=== PATIENT | female | born 1975 | race Two or more races ===

== ENCOUNTER 2018-03-03 05:31 | Day surgery (SDC) | payer OTHER ==
[2018-03-03] MEDS ORDERED: BUPIVACAINE 0.5%/EPI (SDV) 30 ML INJ (06:56)
[2018-03-03] MEDS ORDERED: DESFLURANE 15 MIN (07:00)
[2018-03-03] MEDS ORDERED: CEFAZOLIN 2 GM/50 ML (PMX) 50 ML IVPB (07:00)
[2018-03-03] MEDS ORDERED: IPRATROPIUM (NEB) 0.5 MG/2.5 ML AMP HHN (07:30)
[2018-03-03] MEDS ORDERED: EPHEDrine SULFATE 50 MG/5 ML SYG IV (07:30)
[2018-03-03] MEDS ORDERED: DIPHENHYDRAMINE 50 MG INJ IV (07:30)
[2018-03-03] MEDS ORDERED: MIDAZOLAM 1 MG/ML 2 ML INJ IV (07:30)
[2018-03-03] MEDS ORDERED: MEPERIDINE 25 MG INJ IV (07:30)
[2018-03-03] MEDS ORDERED: hydrALAzine 20 MG INJ IV (07:30)
[2018-03-03] MEDS ORDERED: TRIMETHOBENZAMIDE 100 MG/ML VIAL IM (07:30)
[2018-03-03] MEDS ORDERED: FENTAnyl 50 MCG/ML VIAL IV ×3 (07:30)
[2018-03-03] MEDS ORDERED: OXYCODONE/ACETAMINOPHEN (5/325) TAB PO (07:30)
[2018-03-03] MEDS ORDERED: LABETALOL HCL 20MG INJ IV (07:30)
[2018-03-03] MEDS ORDERED: HYDROmorphONE 1 MG/5 ML IV SYRINGE IV (07:30)
[2018-03-03] MEDS ORDERED: ALBUTEROL 0.083% (NEB) 2.5 MG/3 ML AMP HHN (07:30)
[2018-03-03] MEDS ORDERED: CEFAZOLIN 1 GM INJ (07:41)
[2018-03-03] MEDS ORDERED: PROPOFOL 20 ML (07:41)
[2018-03-03] MEDS ORDERED: GLYCOPYRROLATE 0.4 MG INJ (07:41)
[2018-03-03] MEDS ORDERED: NEOSTIGMINE 3 MG/3 ML SYRINGE (07:41)
[2018-03-03] MEDS ORDERED: MIDAZOLAM 1 MG/ML 2 ML INJ (07:41)
[2018-03-03] MEDS ORDERED: ROCURONIUM 50 MG INJ (07:41)
[2018-03-03] MEDS ORDERED: FENTAnyl 50 MCG/ML VIAL (07:41)
[2018-03-03] MEDS ORDERED: ONDANSETRON 4 MG INJ (07:42)
[2018-03-03] MEDS ORDERED: HYDROmorphONE 2 MG/ML SYG (07:42)
[2018-03-03] MEDS ORDERED: DEXAMETHASONE 4 MG/ML 5 ML INJ (07:44)
[2018-03-03] MEDS ORDERED: ROPIVACAINE 0.5 % 30 ML VIAL (08:01)
[2018-03-03] MEDS ORDERED: KETOROLAC 30 MG INJ (08:59)
[2018-03-03] MEDS: HYDROmorphONE 1 MG/5 ML IV SYRINGE IV ×3 (09:22→09:38)
[2018-03-03] MEDS: ONDANSETRON 4 MG INJ IV (09:23)
[2018-03-03] MEDS: OXYCODONE/ACETAMINOPHEN (5/325) TAB PO (09:47)
== END 2018-03-03 10:44 | disposition home or self-care (01) ==
LOC: SDS 05:31
DX: D25.9 Leiomyoma of uterus, unspecified (principal)
CPT/HCPCS: 49320; 93005

== ENCOUNTER 2018-08-04 05:10 | Inpatient (IN) | payer OTHER ==
[2018-08-04] MEDS ORDERED: SEVOFLURANE 15 MIN (07:00)
[2018-08-04] MEDS: LACTATED RINGER'S 1,000 ML IV ×5 (07:16→20:49)
[2018-08-04] MEDS ORDERED: CEFAZOLIN 1 GM INJ (07:31)
[2018-08-04] MEDS ORDERED: ONDANSETRON 4 MG INJ (07:31)
[2018-08-04] MEDS ORDERED: PROPOFOL 20 ML (07:31)
[2018-08-04] MEDS ORDERED: MEPERIDINE 100 MG INJ (07:31)
[2018-08-04] MEDS ORDERED: LIDOCAINE 2% (SDV) 5 ML INJ (07:31)
[2018-08-04] MEDS ORDERED: METOCLOPRAMIDE 10 MG INJ (07:32)
[2018-08-04] MEDS ORDERED: EPHEDrine 25 MG/5 ML SYG (08:11)
[2018-08-04] MEDS: POLYMYXIN/BACITRACIN 1L IRRIG IRR (09:05)
[2018-08-04] MEDS: BUPIVACAINE 0.25%/EPI (SDV) 30 ML INJ (09:05)
[2018-08-04] MEDS ORDERED: ZOLPIDEM 5 MG TAB PO (10:30)
[2018-08-04] MEDS ORDERED: HYDROCODONE/APAP (5/325) TAB PO ×2 (10:30)
[2018-08-04] MEDS ORDERED: ONDANSETRON INJ 6 MG in DEXTROSE 5% 50 ML IVPB (10:30)
[2018-08-04] MEDS ORDERED: DIPHENHYDRAMINE 50 MG CAP PO (10:30)
[2018-08-04] MEDS: KETOROLAC 30 MG INJ IV ×3 (10:44→22:16)
[2018-08-04] MEDS: HYDROmorphONE 1 MG/5 ML IV SYRINGE IV ×2 (10:56→11:03)
[2018-08-04] MEDS ORDERED: DIPHENHYDRAMINE 50 MG INJ IV (11:00)
[2018-08-04] MEDS ORDERED: MEPERIDINE 25 MG INJ IV (11:00)
[2018-08-04] MEDS ORDERED: OXYCODONE/ACETAMINOPHEN (5/325) TAB PO ×2 (11:00)
[2018-08-04] MEDS ORDERED: MIDAZOLAM 1 MG/ML 2 ML INJ IV (11:00)
[2018-08-04] MEDS ORDERED: ALBUMIN HUMAN 5% 250 ML IV (11:00)
[2018-08-04] MEDS ORDERED: ONDANSETRON 4 MG INJ IV ×2 (11:00)
[2018-08-04] MEDS ORDERED: EPHEDrine 25 MG/5 ML SYG IV (11:00)
[2018-08-04] MEDS ORDERED: HYDROmorphONE 1 MG/5 ML IV SYRINGE IV ×5 (11:00)
[2018-08-04] MEDS ORDERED: LABETALOL HCL 20MG INJ IV (11:00)
[2018-08-04] MEDS ORDERED: hydrALAzine 20 MG INJ IV (11:00)
[2018-08-04] MEDS ORDERED: METOCLOPRAMIDE 10 MG INJ IV (11:00)
[2018-08-04] MEDS ORDERED: FENTAnyl 50 MCG/ML VIAL IV ×6 (11:00)
[2018-08-04] MEDS: METOCLOPRAMIDE 10 MG TAB PO ×2 (12:16→17:22)
[2018-08-04] MEDS: CEFAZOLIN 1 GM/50 ML (PMX) 50 ML IVPB ×2 (13:31→22:15)
[2018-08-05] MEDS: METOCLOPRAMIDE 10 MG TAB PO ×3 (00:41→12:59)
[2018-08-05] MEDS: LACTATED RINGER'S 1,000 ML IV ×2 (02:12→05:16)
[2018-08-05 05:10] LABS: ADD MAN DIFF? NO
[2018-08-05] MEDS: CEFAZOLIN 1 GM/50 ML (PMX) 50 ML IVPB (05:16)
[2018-08-05] MEDS: KETOROLAC 30 MG INJ IV ×3 (05:16→16:39)
[2018-08-05 05:17] LABS: WHITE BLOOD COUNT 9.4 10^3/ul (4.8-10.8)
[2018-08-05 05:17] LABS: BASOPHILS % 0.4 % (0.0-2.0); EOSINOPHILS # 0.1 10^3/ul (0.0-0.5); EOSINOPHILS % 1.4 % (0.0-7.0); HEMATOCRIT 37.9 % (37.0-47.0); HEMOGLOBIN 12.5 g/dl (12.0-16.0); LYMPHOCYTES # 1.3 10^3/ul (0.8-2.9); MEAN CORPUSCULAR VOLUME 90.9 fl (82.0-101.0); MEAN PLATELET VOLUME 10.9 fl (7.4-10.4); MONOCYTE # 0.8 10^3/ul (0.3-0.9); MONOCYTES % 8.1 % (0.0-11.0); NEUTROPHIL # 7.1 10^3/ul (1.6-7.5); NEUTROPHILS % 75.6 % (39.0-77.0); PLATELET COUNT 253 10^3/UL (140-415); RED BLOOD COUNT 4.17 10^6/ul (4.20-5.40); RED CELL DISTRIBUTION WIDTH 12.8 % (11.5-14.5)
[2018-08-05 05:33] LABS: ANION GAP 10 (5-13); BLOOD UREA NITROGEN 7 mg/dl (7-20); CARBON DIOXIDE 31 mmol/L (21-31); CHLORIDE 103 mmol/L (97-110); CREATININE 0.82 mg/dl (0.44-1.00); POTASSIUM 4.7 mmol/L (3.5-5.1); SODIUM 144 mmol/L (135-144)
[2018-08-05 11:20] LABS: ADD UMIC YES; UR ASCORBIC ACID NEGATIVE (NEGATIVE); UR BILIRUBIN (Dip) NEGATIVE (NEGATIVE); UR BLOOD (Dip) 1+ mg/dL (NEGATIVE); UR CLARITY CLEAR (CLEAR); UR COLOR STRAW (YELLOW); UR GLUCOSE (Dip) NEGATIVE (NEGATIVE); UR KETONES (Dip) NEGATIVE (NEGATIVE); UR LEUKOCYTE ESTERASE (Dip) NEGATIVE Leu/ul (NEGATIVE); UR NITRITE (Dip) NEGATIVE (NEGATIVE); UR RBC 7 /HPF (0-5); UR SPECIFIC GRAVITY (Dip) 1.008 (1.003-1.030); UR TOTAL PROTEIN (Dip) NEGATIVE (NEGATIVE); UR UROBILINOGEN (Dip) NEGATIVE (NEGATIVE); UR WBC 3 /HPF (0-5)
== END 2018-08-05 17:35 | disposition home or self-care (01) | DRG 743 ==
LOC: REC 05:10 → MS1 11:27
PROC: 0UDB8ZZ Extraction of Endometrium, Via Natural or Artificial Opening Endoscopic (ICD-10-PCS; principal; 2018-08-04 07:30)
PROC: 0U598ZZ Destruction of Uterus, Via Natural or Artificial Opening Endoscopic (ICD-10-PCS; 2018-08-04 07:30)
PROC: 0JUC3JZ Supplement of Pelvic Region Subcutaneous Tissue and Fascia with Synthetic Substitute, Percutaneous Approach (ICD-10-PCS; 2018-08-04 07:30)
PROC: 0JUC3KZ Supplement of Pelvic Region Subcutaneous Tissue and Fascia with Nonautologous Tissue Substitute, Percutaneous Approach (ICD-10-PCS; 2018-08-04 07:30)
PROC: 0UU Female Reproductive System, Supplement (ICD-10-PCS; 2018-08-04 07:30)
DX: N81.4 Uterovaginal prolapse, unspecified (principal); N92.0 Excessive and frequent menstruation with regular cycle; D25.9 Leiomyoma of uterus, unspecified; K59.00 Constipation, unspecified; N39.46 Mixed incontinence
CPT/HCPCS: 80051; 81001; 82565; 84520; 85025; 87086; 88305; 93005

== ENCOUNTER 2018-08-09 15:26 | Emergency (ER) | payer OTHER ==
[2018-08-09] MEDS: HYDROCODONE/APAP (5/325) TAB PO (16:41)
[2018-08-09 17:11] LABS: URINE PH (Dip) POC 5.5 (5.0-8.5)
[2018-08-09 17:11] LABS: URINE BLOOD (Dip) POC 2+ (NEGATIVE); URINE GLUCOSE (Dip) POC Negative (NEGATIVE); URINE KETONES (Dip) POC 1+ (NEGATIVE); URINE LEUKOCYTE EST (Dip) POC Negative (NEGATIVE); URINE NITRITE (Dip) POC Negative (NEGATIVE); URINE TOTAL PROTEIN POC 1+ (NEGATIVE)
[2018-08-09 17:17] LABS: ADD MAN DIFF? NO
[2018-08-09 17:19] LABS: BASOPHIL # 0.1 10^3/ul (0.0-0.1); BASOPHILS % 0.5 % (0.0-2.0); EOSINOPHILS # 0.3 10^3/ul (0.0-0.5); EOSINOPHILS % 2.5 % (0.0-7.0); HEMATOCRIT 37.7 % (37.0-47.0); HEMOGLOBIN 12.7 g/dl (12.0-16.0); LYMPHOCYTES # 1.2 10^3/ul (0.8-2.9); LYMPHOCYTES % 10.1 % (15.0-51.0); MEAN CORPUSCULAR HEMOGLOBIN 30.2 pg (29.0-33.0); MEAN CORPUSCULAR HGB CONC 33.7 g/dl (32.0-37.0); MEAN CORPUSCULAR VOLUME 89.8 fl (82.0-101.0); MEAN PLATELET VOLUME 10.7 fl (7.4-10.4); MONOCYTE # 0.8 10^3/ul (0.3-0.9); MONOCYTES % 6.5 % (0.0-11.0); NEUTROPHIL # 9.3 10^3/ul (1.6-7.5); NEUTROPHILS % 80.1 % (39.0-77.0); PLATELET COUNT 319 10^3/UL (140-415); RED CELL DISTRIBUTION WIDTH 12.6 % (11.5-14.5)
[2018-08-09 17:19] LABS: WHITE BLOOD COUNT 11.6 10^3/ul (4.8-10.8)
[2018-08-09 17:32] LABS: ADD UMIC YES; UR ASCORBIC ACID NEGATIVE (NEGATIVE); UR BACTERIA FEW /HPF (NONE SEEN); UR BILIRUBIN (Dip) NEGATIVE (NEGATIVE); UR BLOOD (Dip) 2+ mg/dL (NEGATIVE); UR CLARITY SLIGHTLY CLOUDY (CLEAR); UR COLOR AMBER (YELLOW); UR GLUCOSE (Dip) NEGATIVE (NEGATIVE); UR KETONES (Dip) TRACE mg/dL (NEGATIVE); UR LEUKOCYTE ESTERASE (Dip) NEGATIVE Leu/ul (NEGATIVE); UR MUCUS MANY /HPF (NONE SEEN); UR NITRITE (Dip) NEGATIVE (NEGATIVE); UR RBC 5 /HPF (0-5); UR SPECIFIC GRAVITY (Dip) 1.028 (1.003-1.030); UR SQUAMOUS EPITHELIAL CELL FEW /HPF (FEW); UR TOTAL PROTEIN (Dip) 1+ mg/dl (NEGATIVE); UR UROBILINOGEN (Dip) 1+ mg/dL (NEGATIVE); UR WBC 4 /HPF (0-5)
[2018-08-09 17:37] LABS: ANION GAP 10 (5-13); BLOOD UREA NITROGEN 15 mg/dl (7-20); CALCIUM 8.8 mg/dl (8.4-10.2); CARBON DIOXIDE 26 mmol/L (21-31); CHLORIDE 103 mmol/L (97-110); CREATININE 0.76 mg/dl (0.44-1.00); Estimated GFR > 60 mL/min (>60); GLUCOSE 85 mg/dl (70-220); POTASSIUM 3.6 mmol/L (3.5-5.1); SODIUM 139 mmol/L (135-144)
== END 2018-08-09 19:45 | disposition home or self-care (01) ==
LOC: E/R 15:26
DX: R10.2 Pelvic and perineal pain (principal); G89.18 Other acute postprocedural pain; N93.9 Abnormal uterine and vaginal bleeding, unspecified
CPT/HCPCS: 80048; 81001; 81003; 81025; 85025; 87210; 99283